=== PATIENT | female | born 1945 | race Caucasian/White ===

== ENCOUNTER → 2016-10-17 | Outpatient (CLI) | payer MEDICARE, BC ==
--- NOTE | 2016-10-19 08:14 | MM ---
Reason for exam: screening (asymptomatic). Last mammogram was performed 1 year and 1 month ago. History: Patient is postmenopausal. Family history of premenopausal breast cancer in mother. Took estrogen for 19 years beginning at age 49. Took progesterone for 19 years beginning at age 49. Physical Findings: A clinical breast exam by your physician is recommended on an annual basis and results should be correlated with mammographic findings. MG 3D Screening Mammo W/Cad Bilateral CC and MLO view(s) were taken. Prior study comparison: September 30, 2015, bilateral MG screening mammo w CAD. September 17, 2014, bilateral MG screening mammo w CAD. August 25, 2013, bilateral digital screening mammo w/CAD. The breast tissue is heterogeneously dense. This may lower the sensitivity of mammography. No significant changes when compared with prior studies. ASSESSMENT: Negative, BI-RAD 1 RECOMMENDATION: Routine screening mammogram of both breasts in 1 year.
== END | disposition home or self-care (01) ==
LOC: RADMAMWWP 16:42
PROVIDERS: ATTEND Family Medicine
DX: Z12.31 Encounter for screening mammogram for malignant neoplasm of breast (principal); Z80.3 Family history of malignant neoplasm of breast
CPT/HCPCS: 77063; G0202

== ENCOUNTER → 2017-06-01 | Outpatient (CLI) | payer MEDICARE, BC ==
--- NOTE | 2017-06-01 17:20 | US ---
EXAMINATION TYPE: US thyroid st tissue head/neck DATE OF EXAM: 06/01/2017 COMPARISON: None CLINICAL HISTORY: E04.2 NONTOXIC MULTINODULAR GOITER; left thyroidectomy 2 years ago. GLAND SIZE: Right Lobe: 4.1 x 1.3 x 1.7 cm Overall Parenchyma: heterogenous Left Lobe: surgically removed Isthmus Thickness: 0.2cm right side NODULES RIGHT: # of nodules measured on right: 2 largest 1. 1.0 X 0.5 x 0.7 cm isoechoic solid nodule at the lower lateral pole with well-defined margins. This nodule is taller than wide and shows no intranodular vascularity. Prior size: 0.6x 0.5 x 0.6cm per report 2. 0.7 X 0.6 x 0.6 cm hypoechoic mixed nodule at the lower medial pole with well-defined margins. T his nodule is wide as is tall and shows intranodular vascularity. LEFT: no thyroid tissue seen ISTHMUS: # of nodules measured in the isthmus: 0 Bilateral neck scanned, no evidence of lymphadenopathy. IMPRESSION: There is left thyroid lobectomy. Small right thyroid nodules. No dominant thyroid mass.
== END | disposition home or self-care (01) ==
LOC: RADUSWWP 16:25
PROVIDERS: ATTEND Internal Medicine Endocrinology, Diabetes & Metabolism
DX: E04.2 Nontoxic multinodular goiter (principal); Z90.89 Acquired absence of other organs
CPT/HCPCS: 76536

== ENCOUNTER → 2017-08-20 | Outpatient (CLI) | payer MEDICARE, BC ==
--- NOTE | 2017-08-21 07:30 | MR ---
EXAMINATION TYPE: MR shoulder LT wo con DATE OF EXAM: 08/20/2017 COMPARISON: Outside radiographs dated 08/02/2017. HISTORY: Lump on lt shoulder/pain TECHNIQUE: Multiplanar, multisequence imaging of the left shoulder is performed without contrast. FINDINGS: Rotator Cuff: Minimal intrinsic increased signal are seen of the distal insertional fibers and myoten dinous junction of both the supraspinatus and infraspinatus without focal tear although there is some fraying of the anterior fibers of the supraspinatus at the bursal surface. Acromioclavicular Joint: Moderate acromioclavicular arthropathy is demonstrated as joint space narrow ing, marginal osteophytes and capsular hypertrophy. Glenohumeral Joint: Extensive glenohumeral arthropathy is seen as there is joint space narrowing, cho ndral loss, innumerable glenoid subchondral cysts, and marginal osteophytes. Labrum: There is labral detachment of the anterior inferior glenoid labrum with global degeneration o f the remainder of the labrum with signal heterogeneity internally and diminutive caliber of the labr um. Biceps Tendon: The long head of biceps is in normal location within bicipital groove. However, there is attenuation of the intra-articular portion of the biceps tendon at the insertion of the biceps anc hor relating to tendinopathy. Bone marrow signal: Subchondral cystic change is present of the humeral head at the greater tuberosit y from these the enthesopathy. Serpiginous linear T1 hypointense subcortical signal is seen of the hu meral head such as on coronal nonfat sat T1-weighted series image 12 through 15 without humeral head collapse with corresponding high T2 signal. Other: Just lateral to the palpable BB marker at the skin surface there is a PD hyperintense and T1 h ypointense ovoid cystic structure superficial to the anterior margin of the acromioclavicular joint t hat is well-circumscribed measuring 0.8 x 1.3 x 0.9 cm. This is contiguous with the skin surface. No inflammatory changes seen surrounding this. This could represent a subcutaneous cyst. IMPRESSION: 1. Well-circumscribed cystic subcutaneous lesion near the palpable BB marker contiguous with the skin surface favored to represent a sebaceous cyst. Ultrasound could also be performed to evaluate for in ternal vascularity if clinically indicated. 2. Curvilinear serpiginous abnormal signal within the humeral head with the appearance of avascular n ecrosis on T1 and PD weighted images. No current humeral head collapse. Correlate with clinical histo ry. Alternatively this could relate to degenerative change or subchondral fracture. 3. Extensive glenohumeral arthropathy with innumerable subchondral cysts of the glenoid, joint space narrowing and marginal joint space osteophytes. 4. Labral detachment of the anterior inferior glenoid labrum superimposed upon global labral degenera tion. 5. Mild biceps tendinosis of the intra-articular portion near the insertion of the biceps anchor. 6. Mild supraspinatus and infraspinatus tendinosis with bursal surface fraying of the anterior insert ional supraspinatus fibers. 7. Moderate acromioclavicular arthropathy.
== END | disposition home or self-care (01) ==
LOC: RADMRIMAIN 15:22
PROVIDERS: ATTEND Orthopaedic Surgery
DX: M75.82 Other shoulder lesions, left shoulder (principal); M12.812 Other specific arthropathies, not elsewhere classified, left shoulder; M85.612 Other cyst of bone, left shoulder; M87.812 Other osteonecrosis, left shoulder

== ENCOUNTER → 2017-10-26 | Outpatient (CLI) | payer MEDICARE, BC ==
--- NOTE | 2017-10-30 10:13 | MM ---
Reason for exam: screening (asymptomatic). Last mammogram was performed 1 year ago. History: Patient is postmenopausal. Family history of premenopausal breast cancer in mother. Took estrogen for 19 years beginning at age 49. Took progesterone for 19 years beginning at age 49. Physical Findings: A clinical breast exam by your physician is recommended on an annual basis and results should be correlated with mammographic findings. MG 3D Screening Mammo W/Cad Bilateral CC and MLO view(s) were taken. Prior study comparison: October 17, 2016, bilateral MG 3d screening mammo w/cad. September 30, 2015, bilateral MG screening mammo w CAD. The breast tissue is heterogeneously dense. This may lower the sensitivity of mammography. No significant changes when compared with prior studies. ASSESSMENT: Benign, BI-RAD 2 RECOMMENDATION: Routine screening mammogram of both breasts in 1 year.
== END | disposition home or self-care (01) ==
LOC: RADMAMWWP 16:15
PROVIDERS: ATTEND Family Medicine
DX: Z12.31 Encounter for screening mammogram for malignant neoplasm of breast (principal)
CPT/HCPCS: 77063; 77067

== ENCOUNTER → 2017-12-10 | Outpatient (CLI) | payer MEDICARE, BC ==
--- NOTE | 2017-12-10 13:05 | MR ---
EXAMINATION TYPE: MR cervical spine wo con DATE OF EXAM: 12/10/2017 COMPARISON: 09/16/2015 HISTORY: Cervicalgia TECHNIQUE: Multiplanar, multisequence images of the cervical spine were acquired. At T1-to 2 there is severe degenerative disc disease and sagittal disc bulging. Previously noted thyr oid nodule no longer identified. At C2-C3, there is left-sided ligamentum flavum thickening which abuts the dorsal cord. Hypertrophic facet arthropathy is also present. No significant spinal canal or neuroforaminal stenosis. At C3-C4, there is grade 1 anterolisthesis with severe left greater than right hypertrophic facet art hropathy and uncovertebral joint spurring, greater on the left. Changes result in severe left neurofo raminal stenosis. Disc osteophyte complex is also present and causes mild spinal canal stenosis. At C4-C5, there is a retrolisthesis of C5 relative to C4 by 3 mm displacement of the posterior longit udinal ligament. Hypertrophic right greater than left facet arthropathy and uncovertebral joint spurr ing and disc osteophyte complex. Corresponding ligamentum flavum thickening with moderate resultant s philomena canal stenosis though with abutment and flattening of the ventral cord. There is severe right a nd mild left neuroforaminal stenosis. Severe degenerative disc disease has progressed from the previo us exam. At C5-C6, grade 1 retrolisthesis with disc osteophyte complex, hypertrophic facet arthropathy, and un covertebral joint spurring. Changes result in moderate left and mild to moderate right neuroforaminal stenosis. There is ligamentum flavum thickening and resultant mild spinal canal stenosis. At C6-C7, there is facet arthropathy with disc osteophyte complex and ligamentum flavum thickening. C hanges result in mild bilateral neuroforaminal stenosis. At C7-T1, facet arthropathy without significant canal or foraminal stenosis. There is a cystic nodule within the left thyroid gland measuring up to 2.6 cm. Otherwise, no prevertebral paravertebral mass. IMPRESSION: 1. Multilevel advanced disc/endplate degenerative change as well as hypertrophic facet arthropathy th roughout the cervical spine. 2. There is resultant multilevel mild spinal canal stenosis with spondylolistheses as outlined above. There is abutment and flattening of the ventral cord at this level at C4-C5 with moderate spinal darrius nosis with no definite cord signal abnormality. 3. Variable moderate to severe multilevel neuroforaminal stenoses as outlined above.
== END | disposition home or self-care (01) ==
LOC: RADMRIMAIN 11:59
PROVIDERS: ATTEND Orthopaedic Surgery
DX: M48.02 Spinal stenosis, cervical region (principal); M99.71 Connective tissue and disc stenosis of intervertebral foramina of cervical region; M43.12 Spondylolisthesis, cervical region; M47.812 Spondylosis without myelopathy or radiculopathy, cervical region; M46.82 Other specified inflammatory spondylopathies, cervical region
CPT/HCPCS: 72141

== ENCOUNTER → 2018-02-08 | Outpatient (CLI) | payer MEDICARE, BC ==
--- NOTE | 2018-02-08 19:28 | MR ---
EXAMINATION TYPE: MR lumbar spine wo con DATE OF EXAM: 02/08/2018 COMPARISON: NONE HISTORY: Patient having low back pain and bowel issues. TECHNIQUE: T1 and T2 axial and sagittal images of the lumbar spine are submitted. FINDINGS: There is no abnormal signal seen within the visualized spinal cord or paraspinal soft tissu es. There is a scoliotic curvature the spine. Exam limited by motion artifact. Renal cyst noted on th e right. Multilevel Schmorl's nodes noted. Bilateral nerve root sleeve diverticulum at T11-T12. At T12-L1 there is degenerative disc disease. No Canal stenosis. No foraminal encroachment. At L1-2 there is at L1-L2 there is severe degenerative disc disease and hypertrophic changes. There i s mild to moderate bilateral foraminal encroachment but no canal stenosis. Circumferential disc bulgi ng noted. At L2-3 there is severe degenerative disc disease with 3 to 4 mm retrolisthesis. Results in moderate compression of thecal sac and central stenosis. Facet arthropathy contributes and there is moderate t o severe bilateral foraminal encroachment greater on the right. At L3-4 there is degenerative disc disease with broad-based central disc bulging and mild effacement of thecal sac resulting in mild central stenosis. Facet arthropathy and ligamentum flavum hypertrophy are seen and there is mild to moderate bilateral foraminal encroachment greater on the right. At L4-5 there is there is a grade 1 anterolisthesis with severe facet arthropathy. Could not exclude pars defects. Ligamentum flavum hypertrophy are noted there is moderate to severe bilateral foraminal encroachment and moderate central stenosis. At L5-S1 there is severe degenerative disc disease with re-millimeter retrolisthesis. Complete loss o f disc space and signal noted with discogenic marrow changes and there is advanced arthropathy. No ce ntral stenosis. Mild bilateral foraminal encroachment. 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 IMPRESSION: 1. Scoliotic curvature of the spine with multilevel severe degenerative disc disease involving virtua lly all levels. This results in multilevel canal stenosis and significant foraminal encroachment as d iscussed above. There is a grade 1 anterolisthesis of L4 on L5. 2. Asymmetric lobulation of the right renal cortex. There is limited assessment by MRI of the lumbar spine. Recommend ultrasound for further evaluation to exclude mass.
== END | disposition home or self-care (01) ==
LOC: RADMRIMAIN 16:48
PROVIDERS: ATTEND Family Medicine
DX: M48.061 Spinal stenosis, lumbar region without neurogenic claudication (principal); M51.36 Other intervertebral disc degeneration, lumbar region; M43.16 Spondylolisthesis, lumbar region; M41.9 Scoliosis, unspecified
CPT/HCPCS: 72148

== ENCOUNTER → 2018-02-28 | Outpatient (CLI) | payer MEDICARE, BC ==
--- NOTE | 2018-02-28 14:02 | US ---
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 EXAM MEASUREMENTS: Right Kidney: 8.8 x 4.9 x 4.3 cm Left Kidney: 7.7 x 3.9 x 3.8 cm Right Kidney: Small ( 0.8 x 0.8 x 0.9 cm) cortical cyst superior pole . No hydronephrosis or nephroli thiasis. Left Kidney: No hydronephrosis or masses seen Bladder: well distended Bilateral Jets seen: no There is no evidence for hydronephrosis at this point in time. No nephrolithiasis is seen. The ur inary bladder is anechoic. IMPRESSION: Subcentimeter right benign-appearing cortical renal cyst. Otherwise unremarkable exam.
== END | disposition home or self-care (01) ==
LOC: RADUSWWP 12:18
PROVIDERS: ATTEND Family Medicine
DX: Q63.1 Lobulated, fused and horseshoe kidney (principal)
CPT/HCPCS: 76770

== ENCOUNTER → 2018-11-21 | Outpatient (CLI) | payer MEDICARE, BC ==
--- NOTE | 2018-11-25 08:59 | MM ---
Reason for exam: screening (asymptomatic). Last mammogram was performed 1 year and 1 month ago. History: Patient is postmenopausal and history of other cancer. Family history of premenopausal breast cancer in mother. Took estrogen for 19 years beginning at age 49. Took progesterone for 19 years beginning at age 49. Physical Findings: A clinical breast exam by your physician is recommended on an annual basis and results should be correlated with mammographic findings. MG 3D Screening Mammo W/Cad Bilateral CC and MLO view(s) were taken. Prior study comparison: October 26, 2017, bilateral MG 3d screening mammo w/cad. October 17, 2016, bilateral MG 3d screening mammo w/cad. No significant changes when compared with prior studies. ASSESSMENT: Benign, BI-RAD 2 RECOMMENDATION: Routine screening mammogram of both breasts in 1 year.
== END | disposition home or self-care (01) ==
LOC: RADMAMWWP 12:39
PROVIDERS: ATTEND Family Medicine
DX: Z12.31 Encounter for screening mammogram for malignant neoplasm of breast (principal)
CPT/HCPCS: 77063; 77067

== ENCOUNTER → 2019-02-13 | Outpatient (CLI) | payer MEDICARE, BC ==
[2019-02-13 23:37] LABS: Anion Gap 7.5 mmol/L (4.00-12.00); Calcium 8.8 mg/dL (8.7-10.3); Carbon Dioxide 24.5 mmol/L (21.6-31.8); Potassium 3.9 mmol/L (3.5-5.5)
[2019-02-13 23:46] LABS: T4, Free (Free Thyroxine) 1.3 ng/dL (0.80-1.80)
== END | disposition home or self-care (01) ==
LOC: LABWHC1 17:12
PROVIDERS: ATTEND Internal Medicine Endocrinology, Diabetes & Metabolism
DX: E04.2 Nontoxic multinodular goiter (principal); E03.9 Hypothyroidism, unspecified; E55.9 Vitamin D deficiency, unspecified; M89.9 Disorder of bone, unspecified
CPT/HCPCS: 36415; 80048; 82306; 84439; 84443

== ENCOUNTER → 2019-02-25 | Outpatient (CLI) | payer MEDICARE, BC ==
[2019-02-25 10:53] LABS: HCT 40.9 % (34.0-46.0); HGB 12.8 gm/dL (11.4-16.0); MCH 31.3 pg (25.0-35.0); MCHC 31.3 g/dL (31.0-37.0); MCV 100.1 fL (80.0-100.0); Macrocytosis Slight; Mean Platelet Volume 7.2; Platelet Count 319 k/uL (150-450); RBC 4.08 m/uL (3.80-5.40); RDW 14.3 % (11.5-15.5)
[2019-02-25 17:16] LABS: Albumin 4.2 g/dL (3.80-4.90); Albumin/Globulin Ratio 2.1 (1.60-3.17); Anion Gap 6.2 mmol/L (4.00-12.00); Calcium 9.4 mg/dL (8.7-10.3); Carbon Dioxide 25.8 mmol/L (21.6-31.8); LDL Cholesterol,Calculated 134.2 mg/dL (0.0-131.0); Potassium 5.6 mmol/L (3.5-5.5); Total Bilirubin 0.3 mg/dL (0.3-1.2); Total Protein 6.2 g/dL (6.2-8.2); VLDL Calculation 15.8 mg/dL (5.00-40.00)
[2019-02-25 17:23] LABS: T4, Free (Free Thyroxine) 1.2 ng/dL (0.80-1.80)
== END | disposition home or self-care (01) ==
LOC: LABWHC1 09:32
PROVIDERS: ATTEND Physician Assistant
DX: I10 Essential (primary) hypertension (principal)
CPT/HCPCS: 36415; 80053; 80061; 84439; 84443; 85027

== ENCOUNTER → 2020-02-26 | Outpatient (CLI) | payer MEDICARE, BC ==
--- NOTE | 2020-03-02 08:56 | MM ---
Reason for exam: screening (asymptomatic). Last mammogram was performed 1 year and 3 months ago. History: Patient is postmenopausal and has history of other cancer at age 69. Family history of premenopausal breast cancer in mother. Took estrogen for 19 years beginning at age 49. Took progesterone for 19 years beginning at age 49. Physical Findings: A clinical breast exam by your physician is recommended on an annual basis and results should be correlated with mammographic findings. MG 3D Screening Mammo W/Cad Bilateral CC and MLO view(s) were taken. Prior study comparison: November 21, 2018, bilateral MG 3d screening mammo w/cad. October 26, 2017, bilateral MG 3d screening mammo w/cad. The breast tissue is heterogeneously dense. This may lower the sensitivity of mammography. Benign vascular and oil cyst calcifications. No significant changes when compared with prior studies. ASSESSMENT: Benign, BI-RAD 2 RECOMMENDATION: Routine screening mammogram of both breasts in 1 year.
== END | disposition home or self-care (01) ==
LOC: RADMAMWWP 12:01
PROVIDERS: ATTEND Family Medicine
DX: Z12.31 Encounter for screening mammogram for malignant neoplasm of breast (principal); Z80.3 Family history of malignant neoplasm of breast
CPT/HCPCS: 77063; 77067

== ENCOUNTER → 2020-02-26 | Outpatient (CLI) | payer MEDICARE, BC ==
[2020-02-26 20:08] LABS: T4, Free (Free Thyroxine) 1.6 ng/dL (0.80-1.80)
== END | disposition home or self-care (01) ==
LOC: LABWHC1 12:05
PROVIDERS: ATTEND Internal Medicine
DX: E55.9 Vitamin D deficiency, unspecified (principal); E03.9 Hypothyroidism, unspecified
CPT/HCPCS: 36415; 82306; 84439; 84443

== ENCOUNTER → 2021-02-14 | Outpatient (CLI) | payer MEDICARE, BC ==
[2021-02-14 21:26] LABS: T4, Free (Free Thyroxine) 0.8 ng/dL (0.80-1.80)
== END | disposition home or self-care (01) ==
LOC: LABWHC1 11:04
PROVIDERS: ATTEND Internal Medicine
DX: E03.9 Hypothyroidism, unspecified (principal); E55.9 Vitamin D deficiency, unspecified
CPT/HCPCS: 36415; 82306; 84439; 84443

== ENCOUNTER → 2021-03-17 | Outpatient (CLI) | payer MEDICARE, BC ==
--- NOTE | 2021-03-18 13:11 | MM ---
Reason for exam: screening (asymptomatic). Last mammogram was performed 1 year and 1 month ago. History: Patient is postmenopausal and has history of other cancer at age 69. Family history of premenopausal breast cancer in mother. Took estrogen for 19 years beginning at age 49. Took progesterone for 19 years beginning at age 49. Physical Findings: A clinical breast exam by your physician is recommended on an annual basis and results should be correlated with mammographic findings. MG 3D Screening Mammo W/Cad Bilateral CC and MLO view(s) were taken. Prior study comparison: February 26, 2020, bilateral MG 3d screening mammo w/cad. November 21, 2018, bilateral MG 3d screening mammo w/cad. The breast tissue is heterogeneously dense. This may lower the sensitivity of mammography. There is a possible asymmetry in the central right breast on CC view only and spot compression, rolled CC and true lateral views are recommended. ASSESSMENT: Incomplete: need additional imaging evaluation, BI-RAD 0 RECOMMENDATION: Special view mammogram of the right breast. If lesion persists on supplemental views, image directed ultrasound is recommended. [facility] will attempt to contact patient to return for supplemental views and ultrasound if indicated.
== END | disposition home or self-care (01) ==
LOC: RADMAMWWP 10:47
PROVIDERS: ATTEND Family Medicine
DX: Z12.31 Encounter for screening mammogram for malignant neoplasm of breast (principal); Z78.0 Asymptomatic menopausal state; Z80.3 Family history of malignant neoplasm of breast
CPT/HCPCS: 77063; 77067

== ENCOUNTER → 2021-03-17 | Outpatient (CLI) | payer MEDICARE, BC ==
[2021-03-17 18:16] LABS: African American GFR (CKD) 64.7 (60.0-200.0); Anion Gap 11.8 mmol/L (4.00-12.00); Calcium 9.4 mg/dL (8.7-10.3); Carbon Dioxide 21.2 mmol/L (21.6-31.8); Non-African American GFR(CKD) 55.8 (60.0-200.0); Potassium 4.8 mmol/L (3.5-5.5)
== END | disposition home or self-care (01) ==
LOC: LABWHC1 10:29
PROVIDERS: ATTEND Internal Medicine
DX: M89.9 Disorder of bone, unspecified (principal)
CPT/HCPCS: 36415; 80048

== ENCOUNTER → 2021-03-24 | Outpatient (CLI) | payer MEDICARE, BC ==
--- NOTE | 2021-03-24 09:42 | MM ---
Reason for exam: additional evaluation requested from abnormal screening. Last mammogram was performed less than 1 month ago. History: Patient is postmenopausal and has history of other cancer at age 69. Family history of premenopausal breast cancer in mother. Took estrogen for 19 years beginning at age 49. Took progesterone for 19 years beginning at age 49. Physical Findings: Nurse did not find any significant physical abnormalities on exam. MG 3D Work Up W/Cad RT CC, MLO, CCRM, CCRL, LM, and spot compression CC view(s) were taken of the right breast. Prior study comparison: March 17, 2021, bilateral MG 3d screening mammo w/cad. February 26, 2020, bilateral MG 3d screening mammo w/cad. There are scattered fibroglandular densities. Previously seen asymmetry right breast is pliable and presumably represented overlapping fibroglandular tissue. These results were verbally communicated with the patient and result sheet given to the patient on 03/24/21. ASSESSMENT: Negative, BI-RAD 1 RECOMMENDATION: Return to routine screening mammogram schedule for both breasts.
== END | disposition home or self-care (01) ==
LOC: RADMAMWWP 08:07
PROVIDERS: ATTEND Family Medicine
DX: N64.89 Other specified disorders of breast (principal); Z78.0 Asymptomatic menopausal state; Z80.3 Family history of malignant neoplasm of breast
CPT/HCPCS: 77065; G0279; 77061

== ENCOUNTER → 2021-03-28 | Outpatient (CLI) | payer MEDICARE, BC ==
[~2021-03-28] MED LIST: SODIUM CHLORIDE 0.9% 500 ML 500 ML in EMPTY BAG 1 BAG IV PRN; ZOLEDRONIC ACID 5 MG in SODIUM CHLORIDE 0.9% 100 ML IV NR
[2021-03-28 12:52] VITALS: BP 109/71; PULSE 85; RESP 16; TEMP 98.6
== END ==
LOC: PROCWHC3 12:35
PROVIDERS: ATTEND Internal Medicine
DX: M89.9 Disorder of bone, unspecified (principal); Z88.2 Allergy status to sulfonamides; Z88.1 Allergy status to other antibiotic agents; Z88.6 Allergy status to analgesic agent; Z88.8 Allergy status to other drugs, medicaments and biological substances
CPT/HCPCS: 96365; J3489

== ENCOUNTER → 2022-03-09 | Outpatient (CLI) | payer MEDICARE, BC ==
[2022-03-09 19:40] LABS: African American GFR (CKD) 63.5 (60.0-200.0); BUN/Creat Ratio 18.02 Ratio (12.00-20.00); Blood Urea Nitrogen 18.2 mg/dL (9.0-27.0); Calcium 9.1 mg/dL (8.7-10.3); Carbon Dioxide 25.4 mmol/L (20.0-27.5); Non-African American GFR(CKD) 54.8 (60.0-200.0); Potassium 4.6 mmol/L (3.5-5.5); T4, Free (Free Thyroxine) 1.09 ng/dL (0.800-1.800)
== END | disposition home or self-care (01) ==
LOC: LABWHC1 11:57
PROVIDERS: ATTEND Internal Medicine
DX: M89.9 Disorder of bone, unspecified (principal); E03.9 Hypothyroidism, unspecified; E55.9 Vitamin D deficiency, unspecified
CPT/HCPCS: 36415; 80048; 82306; 84439; 84443

== ENCOUNTER → 2022-04-13 | Outpatient (CLI) | payer MEDICARE, BC ==
[2022-04-13 10:37] VITALS: BP 158/83; PULSE 67; RESP 15; TEMP 98.3
== END ==
LOC: PROCWHC3 10:20
PROVIDERS: ATTEND Internal Medicine
DX: M89.9 Disorder of bone, unspecified (principal); Z88.2 Allergy status to sulfonamides; Z88.1 Allergy status to other antibiotic agents; Z88.5 Allergy status to narcotic agent; Z88.6 Allergy status to analgesic agent
CPT/HCPCS: 96365; J3489

== ENCOUNTER → 2022-05-18 | Outpatient (CLI) | payer MEDICARE, BC ==
--- NOTE | 2022-05-19 07:39 | MM ---
Reason for Exam: Screening (asymptomatic). Last mammogram was performed 1 year(s) and 2 month(s) ago. Patient History: Menarche at age 15. First Full-Term at age 21. Left ovary removed at age 63. Right ovary removed at age 63. Hysterectomy at age 63. Postmenopausal. Other cancer, age 69. Estrogen for 19 years from age 49 until age 68. Progesterone for 19 years from age 49 until age 68. Mother had breast cancer. Risk Values: Nichole 5 year model risk: 3.3%. NCI Lifetime model risk: 7.5%. Prior Study Comparison: 10/26/2017 Bilateral Screening Mammogram, [facility]. 11/21/2018 Bilateral Screening Mammogram, [facility]. 02/26/2020 Bilateral Screening Mammogram, [facility]. 03/17/2021 Bilateral Screening Mammogram, [facility]. 03/24/2021 Right Diagnostic Mammogram, [facility]. Tissue Density: The breast tissue is heterogeneously dense. This may lower the sensitivity of mammography. Findings: Analyzed By CAD. There is no suspicious group of microcalcifications or new suspicious mass in either breast. Stable benign-appearing calcifications seen bilaterally. Overall Assessment: Benign, BI-RAD 2 Management: Screening Mammogram of both breasts in 1 year. A clinical breast exam by your physician is recommended on an annual basis and results should be correlated with mammographic findings. Electronically signed and approved by: Han Ribera M.D. Radiologis
== END | disposition home or self-care (01) ==
LOC: RADMAMWWP 13:36
PROVIDERS: ATTEND Family Medicine
DX: Z12.31 Encounter for screening mammogram for malignant neoplasm of breast (principal); Z78.0 Asymptomatic menopausal state; Z85.89 Personal history of malignant neoplasm of other organs and systems; Z80.3 Family history of malignant neoplasm of breast
CPT/HCPCS: 77063; 77067

== ENCOUNTER → 2023-05-03 | Outpatient (CLI) | payer MEDICARE, BC ==
[2023-05-03 17:28] LABS: ALT 24 U/L (8-44); AST 32 U/L (13-35); Albumin 4.3 d/dL (3.8-4.9); Albumin/Globulin Ratio 1.95 Ratio (1.60-3.17); Alkaline Phosphatase 65 U/L (41-126); BUN/Creat Ratio 18.58 Ratio (12.00-20.00); Blood Urea Nitrogen 22.3 mg/dL (9.0-27.0); Calcium 9.9 mg/dL (8.7-10.3); Carbon Dioxide 24.9 mmol/L (21.6-31.8); Chloride 107 mmol/L (96-109); Globulin 2.2 d/dL (1.6-3.3); Glucose 97 mg/dL (70-110); Potassium 4.4 mmol/L (3.5-5.5); Sodium 141 mmol/L (135-145); T4, Free (Free Thyroxine) 1.43 ng/dL (0.80-1.80); Total Bilirubin 0.3 mg/dL (0.3-1.2); Total Protein 6.5 d/dL (6.2-8.2)
== END | disposition home or self-care (01) ==
LOC: LABWHC1 09:14
PROVIDERS: ATTEND Internal Medicine
DX: E03.9 Hypothyroidism, unspecified (principal); E55.9 Vitamin D deficiency, unspecified; M89.9 Disorder of bone, unspecified
CPT/HCPCS: 36415; 80053; 82306; 82523; 84439; 84443

== ENCOUNTER → 2023-05-28 | Outpatient (CLI) | payer MEDICARE, BC ==
--- NOTE | 2023-05-30 14:43 | MM ---
Reason for Exam: Screening (asymptomatic). Last screening mammogram was performed 12 month(s) ago. Patient History: Menarche at age 15. First Full-Term at age 21. Left ovary removed at age 63. Right ovary removed at age 63. Hysterectomy at age 63. Postmenopausal. Other cancer, age 69. Estrogen for 19 years from age 49 until age 68. Progesterone for 19 years from age 49 until age 68. Mother had breast cancer. Risk Values: Nichole 5 year model risk: 3.3%. NCI Lifetime model risk: 7.0%. Prior Study Comparison: 03/17/2021 Bilateral Screening Mammogram, [facility]. 03/24/2021 Right Diagnostic Mammogram, [facility]. 05/18/2022 Bilateral MG 3D screening mammo w/cad, [facility]. Tissue Density: The breast tissue is heterogeneously dense. This may lower the sensitivity of mammography. Findings: Analyzed By CAD. No significant changes when compared with prior studies. Stable benign calcifications. No discrete abnormality. Overall Assessment: Benign, BI-RAD 2 Management: Screening Mammogram of both breasts in 1 year. Electronically signed and approved by: Han Ribera M.D. Radiologis
== END | disposition home or self-care (01) ==
LOC: RADMAMWWP 15:44
PROVIDERS: ATTEND Family Medicine
DX: Z12.31 Encounter for screening mammogram for malignant neoplasm of breast (principal); Z78.0 Asymptomatic menopausal state; Z80.3 Family history of malignant neoplasm of breast
CPT/HCPCS: 77063; 77067

== ENCOUNTER → 2023-09-27 | Outpatient (CLI) | payer MEDICARE, BC ==
[2023-09-27 15:26] LABS: ALT 13 U/L (8-44); AST 16 U/L (13-35); Chol/HDL Ratio 3.83 Ratio; Creatine Kinase 61 U/L (26-186); LDL Cholesterol,Calculated 138.8 mg/dL (0.0-131.0); T4, Free (Free Thyroxine) 1.31 ng/dL (0.80-1.80)
== END | disposition home or self-care (01) ==
LOC: LABWHC1 11:08
PROVIDERS: ATTEND Internal Medicine
DX: E78.5 Hyperlipidemia, unspecified (principal); E03.9 Hypothyroidism, unspecified
CPT/HCPCS: 36415; 80061; 82550; 84439; 84443; 84450; 84460

== ENCOUNTER 2024-02-18 09:12 | Emergency (ER) | payer MEDICARE, BC ==
[2024-02-18 10:14] VITALS: BP 147/75; PULSE 130; RESP 16; TEMP 98.2
[2024-02-18 10:33] LABS: Basophils % (A) 0 %; Eosinophils # (A) 0.2 k/uL (0-0.7); Eosinophils % (A) 3 %; HCT 43.2 % (34.0-46.0); HGB 13.7 gm/dL (11.4-16.0); Lymphocytes # (A) 1.7 k/uL (1.0-4.8); Lymphocytes % (A) 22 %; MCH 30.8 pg (25.0-35.0); MCHC 31.8 g/dL (31.0-37.0); MCV 97.1 fL (80.0-100.0); Mean Platelet Volume 7.3; Monocytes # (A) 0.4 k/uL (0-1.0); Monocytes % (A) 5 %; Neutrophils # (A) 4.9 k/uL (1.3-7.7); Neutrophils % (A) 67 %; Platelet Count 274 k/uL (150-450); RBC 4.45 m/uL (3.80-5.40); RDW 13.3 % (11.5-15.5); WBC 7.4 k/uL (3.8-10.6)
[2024-02-18 10:37] LABS: ALT 18 U/L (4-34); AST 27 U/L (14-36); African American GFR (CKD) 48 (>60 ml/min/1.73 sqM); Albumin 4.2 g/dL (3.5-5.0); Alkaline Phosphatase 95 U/L (38-126); Anion Gap 4 mmol/L; Blood Urea Nitrogen 32 mg/dL (7-17); Calcium 9.3 mg/dL (8.4-10.2); Carbon Dioxide 26 mmol/L (22-30); Chloride 109 mmol/L (98-107); Glucose 95 mg/dL (74-99); Non-African American GFR(CKD) 42 (>60 ml/min/1.73 sqM); Potassium 4.5 mmol/L (3.5-5.1); Sodium 139 mmol/L (137-145); Total Bilirubin 0.8 mg/dL (0.2-1.3); Total Protein 7.2 g/dL (6.3-8.2)
[2024-02-18 10:39] LABS: INR 0.9 (<1.2); Prothrombin Time 10.2 sec (10.0-12.5)
--- NOTE | 2024-02-18 10:53 | US ---
EXAMINATION TYPE: US venous doppler duplex LE LT DATE OF EXAM: 02/18/2024 10:41 AM COMPARISON: NONE CLINICAL INDICATION: Female, 78 years old with history of pain; Left knee pain SIDE PERFORMED: Left TECHNIQUE: The lower extremity deep venous system is examined utilizing real time linear array sonog sidra with graded compression, doppler sonography and color-flow sonography. VESSELS IMAGED: Common Femoral Vein Deep Femoral Vein Greater Saphenous Vein * Femoral Vein Popliteal Vein Small Saphenous Vein * Proximal Calf Veins (* superficial vessels) Left Leg: Negative for DVT IMPRESSION: Grayscale, color doppler, spectral doppler imaging performed of the deep veins of the lo wer extremities. There is normal flow, compressibility, vascular waveforms.
--- NOTE | 2024-02-18 12:15 | ED ---
General Adult HPI - General Source: patient, RN notes reviewed Mode of arrival: wheelchair Limitations: no limitations <Tai Dejesus - Last Filed: 02/18/24 12:14> <Yoshi Bautista - Last Filed: 02/18/24 14:23> - General Chief complaint: Extremity Injury, Lower Stated complaint: LT LEG PAIN Time Seen by Provider: 02/18/24 09:20 - History of Present Illness Initial comments: Quick [id number] female presents to the emergency department with left leg pain. Patient states is atraumatic pain worsening she does have chronic back issues she states that folic her leg was swollen. Patient presented with e levated heart rate but denies any chest pain. (Tai Dejesus) This is a 78-year-old female with left knee pain and leg pain. Patient has chronic pain issues and states she has a history of rheumatoid arthritis. She denies injury. Denies fever. (Yoshi Bautista) - Related Data Home Medications Medication Instructions Recorded Confirmed Cyclobenzaprine [Flexeril] 10 mg PO DAILY PRN 05/15/14 04/13/22 Fexofenadine HCl [Janie Allergy] 180 mg PO DAILY 05/15/14 04/13/22 Ibuprofen [Motrin] 800 mg PO DIRECTED PRN 05/15/14 04/13/22 Losartan Potassium [Cozaar] 100 mg PO DAILY 05/15/14 04/13/22 Metoprolol Tartrate [Lopressor] 50 mg PO HS 05/15/14 04/13/22 Omeprazole 40 mg PO BID 05/15/14 04/13/22 amLODIPine BESYLATE [Norvasc] 5 mg PO BID 05/15/14 04/13/22 traMADol-ACETAMINOP 37.5-325MG 1 tab PO TID PRN 05/15/14 04/13/22 [Ultracet] Furosemide [Lasix] 20 mg PO HS 07/28/14 04/13/22 Ergocalciferol [Vitamin D2 (1250 50,000 units PO WEEKLY 03/28/21 04/13/22 Mcg = 90610 Iu)] Levothyroxine Sodium [Synthroid] 1 tab PO DAILY 03/28/21 04/13/22 Magnesium 400 mg PO DAILY 06/28/21 07/14/22 Pramipexole Di-HCl [Pramipexole 1 tab PO HS 03/28/21 04/13/22 Dihydrochloride] Previous Rx's Medication Instructions Recorded predniSONE [Deltasone] 20 mg PO DIRECTED #30 tab 06/05/16 Allergies Allergy/AdvReac Type Severity Reaction Status Date / Time baclofen Allergy Unknown Verified 02/18/24 09:50 erythromycin base Allergy Rash/Hives Verified 02/18/24 09:50 [Erythromycin Base] meperidine HCl [From Demerol] Allergy Dyspnea Verified 02/18/24 09:50 Sulfa (Sulfonamide Allergy Swelling Verified 02/18/24 09:50 Antibiotics) Review of Systems ROS Other: All systems not noted in ROS Statement are negative. <Tai Dejesus - Last Filed: 02/18/24 12:14> ROS Other: All systems not noted in ROS Statement are negative. <Yoshi Bautista - Last Filed: 02/18/24 14:23> ROS Statement: Those systems with pertinent positive or pertinent negative responses have been documented in the HPI. Past Medical History Past Medical History: Hypertension Additional Past Medical History / Comment(s): HYPOGLYCEMIA, ACHALASIA History of Any Multi-Drug Resistant Organisms: None Reported Past Surgical History: Hysterectomy Additional Past Surgical History / Comment(s): acalasia Past Anesthesia/Blood Transfusion Reactions: Postoperative Nausea & Vomiting (PONV) Past Psychological History: Anxiety Smoking Status: Never smoker Past Alcohol Use History: Occasional Past Drug Use History: None Reported <Tai Dejesus - Last Filed: 02/18/24 12:14> General Exam Limitations: no limitations <Tai Dejesus - Last Filed: 02/18/24 12:14> General appearance: alert, in no apparent distress Head exam: Present: atraumatic, normocephalic Eye exam: Present: normal appearance, PERRL ENT exam: Present: normal exam Neck exam: Present: normal inspection Respiratory exam: Present: normal lung sounds bilaterally. Absent: respiratory distress, wheezes Cardiovascular Exam: Present: regular rate, normal rhythm GI/Abdominal exam: Present: soft. Absent: distended, tenderness, guarding Extremities exam: Present: normal inspection, normal capillary refill, other (Pulses intact, no numbness, no skin changes). Absent: joint swelling, calf tenderness Neurological exam: Present: alert, oriented X3 Psychiatric exam: Present: normal affect, normal mood <MicheleYoshi Christian - Last Filed: 02/18/24 14:23> - General Exam Comments Initial Comments: Visual Physical Exam Vital signs reviewed General: Well-appearing, nontoxic, no acute distress. Head: Normocephalic, atraumatic Eyes: PERRLA, EOMI ENT: Airway patent Chest: Nonlabored breathing Skin: No visual rash, normal skin tone Neuro: Alert and oriented 3 Musculoskeletal: No gross abnormalities (Tai Dejesus) Course Vital Signs 02/18/24 09:47 Temperature 98.2 F Pulse Rate 130 H Respiratory 16 Rate Blood Pressure 147/75 O2 Sat by Pulse 94 L Oximetry Medical Decision Making - Lab Data Result diagrams: 02/18/24 10:04 02/18/24 10:04 <Tai Dejesus - Last Filed: 02/18/24 12:14> - Lab Data Result diagrams: 02/18/24 10:04 02/18/24 10:04 <Yoshi Bautista - Last Filed: 02/18/24 14:23> - Medical Decision Making I completed the quick note portion of this chart signed Tai Dejesus PA-C (Tai Dejesus) Was pt. sent in by a medical professional or institution (MASOUD Stack, COUNSELOR EDUCATION PROFESSOR, urgent care, hospital, or correction...) When possible be specific @ -No Did you speak to anyone other than the patient for history (EMS, parent, family, police, friend...)? What history was obtained from this source @ -No Did you review nursing and triage notes (agree or disagree)? Why? @ -I reviewed and agree with nursing and triage notes Were old charts reviewed (outside hosp., previous admission, EMS record, old EKG, old radiological studies, urgent care reports/EKG's, correction records)? Report findings @ -No old charts were reviewed Differential Musculoskeletal Muscular strain, contusion, ligament sprain, fracture, arthritis, septic arthritis, bursitis, cellulitis, muscle spasm, nerve compression, DVT, arterial occlusion, herpes zoster, electrolyte abnormality, tumor.... This is not meant to be in all inclusive list EKG interpreted by me (3pts min.). @ -As above X-rays interpreted by me (1pt min.). @ -None done CT interpreted by me (1pt min.). @ -None done U/S interpreted by me (1pt. min.). @ -ultra Sound negative for DVT What meds were considered but not given or refused? Why? @ -None Did you discuss the management of the patient with other professionals (professionals i.e. , PA, COUNSELOR EDUCATION PROFESSOR, lab, RT, psych nurse, social media intern, family lawyer, teacher, weapons electrical engineering officer, manager of case)? Give summary @ -No Was smoking cessation discussed for >3mins.? @ -No Was critical care preformed (if so, how long)? @ -No Were there social determinants of health that impacted care today? How? (Homelessness, low income, unemployed, alcoholism, drug addiction, transportation, low edu. Level, literacy, decrease access to med. care, usp, rehab)? @ -No Was there de-escalation of care discussed even if they declined (Discuss DNR or withdrawal of care, Hospice)? DNR status @ -No What co-morbidities impacted this encounter? (DM, HTN, Smoking, COPD, CAD, Cancer, CVA, ARF, Chemo, Hep., AIDS, mental health diagnosis, sleep apnea, morbid obesity)? @ -None Was patient admitted / discharged? Hospital course, mention meds given and route , prescriptions, significant lab abnormalities, going to OR and other pertinent info. @ 78-year-old female with atraumatic left knee pain. There is no signs of joint effusion or swelling, no erythema, distal pulses are intact. Ultrasound is negative for DVT, laboratory testing unremarkable. Patient states her pain is improved after she took her tramadol which she is prescribed for her chronic back pain. She is stable for discharge at this time. Undiagnosed new problem with uncertain prognosis? @ -No Drug Therapy requiring intensive monitoring for toxicity (Heparin, Nitro, Insulin, Cardizem)? @ -No Were any procedures done? @ -No Diagnosis/symptom? @Knee pain Acute, or Chronic, or Acute on Chronic? @Acute chronic Uncomplicated (without systemic symptoms) or Complicated (systemic symptoms)? @ -Default Side effects of treatment? @ -No Exacerbation, Progression, or Severe Exacerbation? @ -No Poses a threat to life or bodily function? How? (Chest pain, [place], [place], pneumonia, PE, COPD, DKA, ARF, appy, cholecystitis, CVA, Diverticulitis, Homicidal, Suicidal, threat to staff... and all critical care pts) @ -No (Yoshi Bautista) - Lab Data Lab Results 02/18/24 02/18/24 02/18/24 Range/Units 10:04 10:04 10:04 WBC 7.4 (3.8-10.6) k/uL RBC 4.45 (3.80-5.40) m/uL Hgb 13.7 (11.4-16.0) gm/dL Hct 43.2 (34.0-46.0) % MCV 97.1 (80.0-100.0) fL MCH 30.8 (25.0-35.0) pg MCHC 31.8 (31.0-37.0) g/dL RDW 13.3 (11.5-15.5) % Plt Count 274 (150-450) k/uL MPV 7.3 Neutrophils % 67 % Lymphocytes % 22 % Monocytes % 5 % Eosinophils % 3 % Basophils % 0 % Neutrophils # 4.9 (1.3-7.7) k/uL Lymphocytes # 1.7 (1.0-4.8) k/uL Monocytes # 0.4 (0-1.0) k/uL Eosinophils # 0.2 (0-0.7) k/uL Basophils # 0.0 (0-0.2) k/uL PT 10.2 (10.0-12.5) sec INR 0.9 (<1.2) APTT 23.0 (22.0-30.0) sec Sodium 139 (137-145) mmol/L Potassium 4.5 (3.5-5.1) mmol/L Chloride 109 H (98-107) mmol/L Carbon Dioxide 26 (22-30) mmol/L Anion Gap 4 mmol/L BUN 32 H (7-17) mg/dL Creatinine 1.25 H (0.52-1.04) mg/dL Est GFR (CKD-EPI)AfAm 48 (>60 ml/min/1.73 sqM) Est GFR (CKD-EPI)NonAf 42 (>60 ml/min/1.73 sqM) Glucose 95 (74-99) mg/dL Calcium 9.3 (8.4-10.2) mg/dL Total Bilirubin 0.8 (0.2-1.3) mg/dL AST 27 (14-36) U/L ALT 18 (4-34) U/L Alkaline Phosphatase 95 (38-126) U/L Total Protein 7.2 (6.3-8.2) g/dL Albumin 4.2 (3.5-5.0) g/dL Disposition <Tai Dejesus - Last Filed: 02/18/24 12:14> Is patient prescribed a controlled substance at d/c from ED?: No Time of Disposition: 14:23 <Yoshi Bautista - Last Filed: 02/18/24 14:23> Clinical Impression: Knee pain Disposition: HOME SELF-CARE Instructions (If sedation given, give patient instructions): Knee Pain (ED) Referrals: Brandy Choe DO [Primary Care Provider] - 1-2 days
== END 2024-02-18 12:30 | disposition home or self-care (01) ==
LOC: EC 09:12
DX: M25.562 Pain in left knee (principal); Z88.2 Allergy status to sulfonamides; Z88.1 Allergy status to other antibiotic agents; Z88.8 Allergy status to other drugs, medicaments and biological substances
CPT/HCPCS: 36415; 80053; 85025; 85610; 85730; 93005; 99284